=== PATIENT | female | born 1950 ===

== ENCOUNTER 2017-04-02 21:49 | Emergency (ER) | payer MEDICAID ==
[2017-04-02 21:49] VITALS: BMI 27.3
[2017-04-02 22:04] VITALS: BP 154/76; PULSE 99; RESP 18; TEMP 98.2; O2SAT 97
--- NOTE | 2017-04-02 23:20 | CT ---
EXAM: CT Lumbar Spine Without Intravenous Contrast CLINICAL HISTORY: 66 years old, female; Pain; Other: Midline pain; Additional info: Lumbar midline pain positional HX of arthritis TECHNIQUE: Axial computed tomography images of the lumbar spine without intravenous contrast. All CT scans at this facility use one or more dose reduction techniques, viz.: automated exposure control; ma/kV adjustment per patient size (including targeted exams where dose is matched to indication; i.e. head); or iterative reconstruction technique. COMPARISON: No relevant prior studies available. FINDINGS: Vertebrae: No acute fracture. Discs/spinal canal/neural foramina: No acute findings. Degenerative disease is identified at the level of L5/S1 with disc space narrowing, endplate changes and a vacuum phenomena. Facet arthropathy is also noted. Soft tissues: Unremarkable. IMPRESSION: Degenerative disease at the level of L5/S1, as detailed above.
--- NOTE | 2017-04-02 23:36 | ED PDOC ---
HPI: Back Time Seen by Provider: 04/02/17 22:06 Chief Complaint (Nursing): Back Pain Chief Complaint (Provider): Back Pain History Per: Patient History/Exam Limitations: no limitations Onset/Duration Of Symptoms: Days (x 2), Intermittent Episodes Additional Complaint(s): Jyothi is a 66 y/o female who presents to the ED c/o back pain that has been intermittent for the past two days. Patient states that the pain is worse when walking, bending over, or sitting up, and better when lying still. She denies radiation to the legs, numbness, weakness, fever, or urinary symptoms, and does not have problems ambulating. PMD: Cherrie Pillai Past Medical History Reviewed: Historical Data, Nursing Documentation, Vital Signs Vital Signs: Last Vital Signs Temp 98.2 F 04/02/17 22:01 Pulse 99 H 04/02/17 22:01 Resp 18 04/02/17 22:01 BP 154/76 H 04/02/17 22:01 Pulse Ox 97 04/02/17 22:01 - Medical History PMH: Anxiety, Colonic Polyps, Depression, Gastritis, HTN, Hypercholesterolemia, Osteoporosis Denies: Malignancy, Chronic Kidney Disease - Surgical History Surgical History: Endoscopy - Family History Family History: States: Unknown Family Hx - Social History Drugs: Denies - Immunization History Hx Tetanus Toxoid Vaccination: No Hx Influenza Vaccination: Yes Hx Pneumococcal Vaccination: No - Home Medications Home Medications: Ambulatory Orders Medication Instructions Recorded Amlodipine Besylate [Amlodipine] 5 mg PO DAILY 09/23/13 Atorvastatin Calcium [Lipitor] 10 mg PO DAILY 09/23/13 Raloxifene HCl [Evista] 60 mg PO DAILY 07/02/15 Ibuprofen [Motrin] 600 mg PO TID #20 tab 01/15/16 Methocarbamol [Robaxin] 500 mg PO BID #8 tab 01/15/16 Naproxen 500 mg PO BID #30 tab 04/02/17 - Allergies Allergies/Adverse Reactions: Allergies Allergy/AdvReac Type Severity Reaction Status Date / Time No Known Allergies Allergy Verified 01/15/16 14:06 Review of Systems ROS Statement: Except As Marked, All Systems Reviewed And Found Negative Constitutional: Negative for: Fever, Weakness Genitourinary Female: Negative for: Dysuria, Frequency, Incontinence, Hematuria Musculoskeletal: Positive for: Back Pain. Negative for: Leg Pain Physical Exam - Reviewed Nursing Documentation Reviewed: Yes Vital Signs Reviewed: Yes - Physical Exam Appears: Positive for: Well, Non-toxic, No Acute Distress Head Exam: Positive for: ATRAUMATIC, NORMAL INSPECTION, NORMOCEPHALIC Skin: Positive for: Normal Color, Warm, Dry ENT: Positive for: Normal ENT Inspection Neck: Positive for: Normal, Painless ROM, Supple Cardiovascular/Chest: Positive for: Regular Rate, Rhythm. Negative for: Murmur Respiratory: Positive for: Normal Breath Sounds. Negative for: Respiratory Distress Gastrointestinal/Abdominal: Positive for: Normal Exam, Bowel Sounds, Soft. Negative for: Tenderness Back: Positive for: Other (lower back midline and paraspinal tenderness. Negative straight leg) Extremity: Positive for: Normal ROM. Negative for: Pedal Edema, Deformity Neurologic/Psych: Positive for: Alert, Oriented. Negative for: Motor/Sensory Deficits - ECG O2 Sat by Pulse Oximetry: 97 (RA) Pulse Ox Interpretation: Normal Medical Decision Making Medical Decision Making: Time: 22:15 Initial Impression: Back Pain - Differentials: arthritis of spine, musculoskeletal pain, other conditions considered but not listed Initial Plan: --CT Lumbar Spine w/o Contrast --Urine Dipstick --Toradol --Flexeril Time: 23:30 FINDINGS: Vertebrae: No acute fracture. Discs/spinal canal/neural foramina: No acute findings. Degenerative disease is identified at the level of L5/S1 with disc space narrowing, endplate changes and a vacuum phenomena. Facet arthropathy is also noted. Soft tissues: Unremarkable. IMPRESSION: Degenerative disease at the level of L5/S1, as detailed above. Scribe Attestation: Documented by Joel Ty, acting as a scribe for Rafa Giraldo MD Provider Scribe Attestation: All medical record entries made by the Scribe were at my direction and personally dictated by me. I have reviewed the chart and agree that the record accurately reflects my personal performance of the history, physical exam, medical decision making, and the department course for this patient. I have also personally directed, reviewed, and agree with the discharge instructions and disposition. Disposition - Clinical Impression Clinical Impression: Back pain, Arthritis of lumbar spine - Patient ED Disposition Is Patient to be Admitted: No Doctor Will See Patient In The: Office Counseled Patient/Family Regarding: Studies Performed, Diagnosis, Need For Followup - Disposition Referrals: [facility] [Outside] Disposition: Routine/Home Disposition Time: 23:43 Condition: GOOD Additional Instructions: Take your medications as instructed. Follow up with your PCP in 2-3 days. Prescriptions: Naproxen 500 mg PO BID #30 tab Instructions: Back Pain (ED) Print Language: JAPANESE
== END 2017-04-02 23:47 | disposition home or self-care (01) ==
LOC: H.ER 21:49
DX: M54.9 Dorsalgia, unspecified (principal); M81.0 Age-related osteoporosis without current pathological fracture; E78.00 Pure hypercholesterolemia, unspecified; F32.9 Major depressive disorder, single episode, unspecified; F41.9 Anxiety disorder, unspecified; I10 Essential (primary) hypertension
CPT/HCPCS: 72131; 96372; 99282; J1885

== ENCOUNTER 2017-06-08 10:00 | Emergency (ER) | payer MEDICAID ==
[2017-06-08 10:01] VITALS: BMI 27.3
[2017-06-08 10:30] VITALS: RESP 17; TEMP 97; O2SAT 99
--- NOTE | 2017-06-08 12:44 | ED PDOC ---
HPI: Female Pain Time Seen by Provider: 06/08/17 12:11 Chief Complaint (Nursing): Female Genitourinary Chief Complaint (Provider): "my back hurts and i bled yesterday" History Per: Patient History/Exam Limitations: no limitations Onset/Duration Of Symptoms: Days Current Symptoms Are (Timing): Gone Now Severity: Mild Pain Scale Rating Of: 2 Quality Of Discomfort: Aching Associated Symptoms: Back Pain. denies: Fever, Nausea, Vomiting, Urinary Symptoms Additional Complaint(s): 66 y/o pre-diabetic female presents for evaluation of an episode of abnormal uterine bleeding and low back pain. Pt reports she had some back pain the last few months and reports it worsened yesterday w/o any inciting event. She denies any saddle anesthesia, urinary/bowel retention/incontinence. Pain is 3/10, achy , nonradiating. She also reports an episode of abnormal uterine bleeding, w/o any traumatic event. She reports bleeding was about the amount of what her periods used to be (2-3 pads per day), w/o clots, and spontaneously subsided. LMP was over 5 years ago. No hx of abnormal uterine bleeding. Denies bleeding currently. Denies any hx of coagulapathy or blood thinning medications. Reports having an endometrial bx years ago w/o any abnormal findings. No other active complaints. Denies fever/chills, lightheadedness/dizziness, CP/SOB/palpitations , N/V/D/C, urinary symptoms, numbness/tingling. Past Medical History Vital Signs: Last Vital Signs Temp 97 F L 06/08/17 10:27 Pulse 69 06/08/17 10:27 Resp 17 06/08/17 10:27 BP 149/84 06/08/17 10:27 Pulse Ox 99 06/08/17 10:27 - Medical History PMH: Anxiety, Colonic Polyps, Depression, Gastritis, HTN, Hypercholesterolemia, Osteoporosis Denies: Malignancy, Chronic Kidney Disease - Surgical History Surgical History: Endoscopy - Family History Family History: States: Unknown Family Hx - Immunization History Hx Tetanus Toxoid Vaccination: No Hx Influenza Vaccination: Yes Hx Pneumococcal Vaccination: No - Home Medications Home Medications: Ambulatory Orders Medication Instructions Recorded Amlodipine Besylate [Amlodipine] 5 mg PO DAILY 09/23/13 Atorvastatin Calcium [Lipitor] 10 mg PO DAILY 09/23/13 Raloxifene HCl [Evista] 60 mg PO DAILY 07/02/15 Ibuprofen [Motrin] 600 mg PO TID #20 tab 01/15/16 Methocarbamol [Robaxin] 500 mg PO BID #8 tab 01/15/16 Naproxen 500 mg PO BID #30 tab 04/02/17 - Allergies Allergies/Adverse Reactions: Allergies Allergy/AdvReac Type Severity Reaction Status Date / Time No Known Allergies Allergy Verified 06/08/17 10:27 - Laboratory Results Result Diagrams: 06/08/17 13:47 06/08/17 13:47 - ECG O2 Sat by Pulse Oximetry: 99 - Progress ED Course And Treament: CBC CMP UA Type and Screen labs within normal limits, pt asymptomatic. Declined pelvic examination today. Discussed importance of following up with doctor of naturopathic medicine and PMD for further work up. Pt vocalized understanding and plans to set up appointments this week. ED precautions provided. Disposition - Clinical Impression Clinical Impression: Post-menopausal bleeding - Patient ED Disposition Is Patient to be Admitted: No - Disposition Disposition: Routine/Home Disposition Time: 14:37 Condition: STABLE Additional Instructions: follow up with your PMD in 2-3 days follow up with your doctor of naturopathic medicine as soon as possible if bleeding resumes, please return to ED for evaluation Forms: [employer] (Pashto)
[2017-06-08 13:56] LABS: BASO # 0.1 K/uL (0.0-0.2); EOS % 0.5 % (0.0-4.0); HEMOGLOBIN 13.7 g/dL (12.0-16.0); LYMPH # 2.9 K/uL (1.0-4.3); MEAN CELL VOLUME 86.4 fl (81.0-99.0); MEAN CORPUSCULAR HEMOGLOBIN 28.7 pg (27.0-31.0); MEAN CORPUSCULAR HGB CONC 33.3 g/dL (33.0-37.0); MEAN PLATELET VOLUME 9.9 fl (7.2-11.7); MONO # 0.5 K/uL (0.0-0.8); MONO % 6.2 % (0.0-10.0); NEUT # 4.3 K/uL (1.8-7.0); NEUT % 55.3 % (50.0-75.0); NRBC % 0.2 % (0.0-0.0); RBC 4.78 Mil/uL (3.80-5.20); RED CELL DISTRIBUTION WIDTH 13.3 % (11.5-14.5); WHITE BLOOD COUNT 7.8 K/uL (4.8-10.8)
[2017-06-08 13:59] LABS: SQUAMOUS EPITHIAL < 1 /hpf (0-5); URINE BILIRUBIN NEGATIVE (NEGATIVE); URINE BLOOD NEGATIVE (NEGATIVE); URINE CLARITY SLIGHTY-CLOUDY (Clear); URINE COLOR YELLOW (YELLOW); URINE GLUCOSE (UA) NEG (Normal); URINE LEUKOCYTE ESTERASE NEG Leu/uL (Negative); URINE NITRATE NEGATIVE (NEGATIVE); URINE PROTEIN NEGATIVE (NEGATIVE); URINE UROBILINOGEN 0.2-1.0 mg/dL (0.2-1.0)
[2017-06-08 14:10] LABS: ALB/GLOB RATIO 1.4 (1.0-2.1); ALBUMIN 4.5 g/dL (3.5-5.0); ALT/SGPT 44 U/L (9-52); AST/SGOT 32 U/L (14-36); BLOOD UREA NITROGEN 14 mg/dl (7-17); CALCIUM 9.9 mg/dL (8.4-10.2); GFR AFRICAN-AMERICAN > 60; GFR NON-AFRICAN AMERICAN > 60
[2017-06-08 15:03] VITALS: BP 120/88; PULSE 76
== END 2017-06-08 15:02 | disposition home or self-care (01) ==
LOC: H.ER 10:00
DX: M54.9 Dorsalgia, unspecified (principal); N95.0 Postmenopausal bleeding; R73.09 Other abnormal glucose; E78.00 Pure hypercholesterolemia, unspecified; F32.9 Major depressive disorder, single episode, unspecified; F41.9 Anxiety disorder, unspecified; I10 Essential (primary) hypertension; M81.0 Age-related osteoporosis without current pathological fracture

== ENCOUNTER 2017-12-18 11:32 | Emergency (ER) | payer MEDICAID ==
[2017-12-18 11:36] VITALS: BMI 30.2
[2017-12-18 11:37] VITALS: BP 127/77; PULSE 83; RESP 16; TEMP 98.8; O2SAT 96
[2017-12-18] MEDS ORDERED: Iohexol 240 (50 ml) PO ONE (12:36)
[2017-12-18] MEDS ORDERED: Iohexol 240 (50 ml) ONE (12:51)
[2017-12-18 13:41] LABS: URINE BILIRUBIN NEGATIVE (NEGATIVE); URINE BLOOD NEGATIVE (NEGATIVE); URINE CLARITY CLEAR (Clear); URINE COLOR YELLOW (YELLOW); URINE GLUCOSE (UA) NEG (Normal); URINE LEUKOCYTE ESTERASE SMALL Leu/uL (Negative); URINE PROTEIN NEGATIVE (NEGATIVE); URINE UROBILINOGEN 0.2-1.0 mg/dL (0.2-1.0)
[2017-12-18 13:46] LABS: HEMOGLOBIN 13.2 g/dL (12.0-16.0); MONO # 0.5 K/uL (0.0-0.8); NEUT # 3.4 K/uL (1.8-7.0)
[2017-12-18 13:49] LABS: BASO % 0.7 % (0.0-2.0); EOS % 0.7 % (0.0-4.0); LYMPH # 2.8 K/uL (1.0-4.3); LYMPH % 41.6 % (20.0-40.0); MEAN CELL VOLUME 87.4 fl (81.0-99.0); MEAN CORPUSCULAR HGB CONC 33.2 g/dL (33.0-37.0); MONO % 7.3 % (0.0-10.0); NEUT % 49.7 % (50.0-75.0); NRBC % 0.1 % (0.0-0.0); RBC 4.57 Mil/uL (3.80-5.20); RED CELL DISTRIBUTION WIDTH 13.5 % (11.5-14.5); WHITE BLOOD COUNT 6.8 K/uL (4.8-10.8)
[2017-12-18 14:33] LABS: ALBUMIN 4.5 g/dL (3.5-5.0); BLOOD UREA NITROGEN 19 mg/dl (7-17); CALCIUM 9.9 mg/dL (8.4-10.2); GFR AFRICAN-AMERICAN > 60; GFR NON-AFRICAN AMERICAN > 60
[2017-12-18 14:34] LABS: ALB/GLOB RATIO 1.5 (1.0-2.1); ALT/SGPT 32 U/L (9-52); AST/SGOT 27 U/L (14-36); LIPASE 63 U/L (23-300)
--- NOTE | 2017-12-18 14:45 | ED PDOC ---
HPI: Abdomen Time Seen by Provider: 12/18/17 11:40 Chief Complaint (Nursing): Abdominal Pain Chief Complaint (Provider): abdominal pain History Per: Patient, Head Of Advertising History/Exam Limitations: no limitations Current Symptoms Are (Timing): Still Present Location Of Pain/Discomfort: RLQ, Periumbilical, Suprapubic Quality Of Discomfort: Sharp Associated Symptoms: Urinary Symptoms (frequency). denies: Nausea, Vomiting, Diarrhea, Loss Of Appetite Additional Complaint(s): 66yo female c/o lower abdominal pain ongoing intermittently for about 2 months. Denies vomiting, diarrhea, constipation, fever or dizziness. Does note urinary frequency but denies dysuria or hematuria. Denies vaginal complaints. Told PMD at [facility] about symptoms and had bloodwork performed but unknown results. Today pain was worse prompting ED visit. Past Medical History Reviewed: Historical Data, Nursing Documentation, Vital Signs Vital Signs: Last Vital Signs Temp 98.8 F 12/18/17 11:36 Pulse 83 12/18/17 11:36 Resp 16 12/18/17 11:36 BP 127/77 12/18/17 11:36 Pulse Ox 96 12/18/17 11:36 - Medical History PMH: Anxiety, Colonic Polyps, Depression, Gastritis, HTN, Hypercholesterolemia, Osteoporosis Denies: Malignancy, Chronic Kidney Disease - Surgical History Surgical History: Endoscopy, - Family History Family History: States: Unknown Family Hx - Living Arrangements Living Arrangements: With Family - Social History Current smoker - smoking cessation education provided: No Alcohol: None - Immunization History Hx Tetanus Toxoid Vaccination: No Hx Influenza Vaccination: Yes Hx Pneumococcal Vaccination: No - Home Medications Home Medications: Ambulatory Orders Medication Instructions Recorded Amlodipine Besylate [Amlodipine] 5 mg PO DAILY 09/23/13 Atorvastatin Calcium [Lipitor] 10 mg PO DAILY 09/23/13 Raloxifene HCl [Evista] 60 mg PO DAILY 07/02/15 Ibuprofen [Motrin] 600 mg PO TID #20 tab 01/15/16 Methocarbamol [Robaxin] 500 mg PO BID #8 tab 01/15/16 Naproxen 500 mg PO BID #30 tab 04/02/17 - Allergies Allergies/Adverse Reactions: Allergies Allergy/AdvReac Type Severity Reaction Status Date / Time No Known Allergies Allergy Verified 06/08/17 10:27 Review of Systems Constitutional: Negative for: Fever ENT: Negative for: Ear Pain Cardiovascular: Negative for: Chest Pain Respiratory: Negative for: Shortness of Breath Gastrointestinal: Positive for: Abdominal Pain. Negative for: Vomiting, Diarrhea Genitourinary Female: Positive for: Frequency. Negative for: Dysuria, Incontinence, Hematuria Musculoskeletal: Negative for: Neck Pain Skin: Negative for: Rash, Lesions Neurological: Negative for: Weakness, Numbness Physical Exam - Reviewed Nursing Documentation Reviewed: Yes Vital Signs Reviewed: Yes - Physical Exam Appears: Positive for: Well, Non-toxic, No Acute Distress Head Exam: Positive for: ATRAUMATIC, NORMAL INSPECTION, NORMOCEPHALIC Skin: Positive for: Normal Color, Warm. Negative for: Rash (neg rash to abdomen ) Eye Exam: Positive for: EOMI, Normal appearance, PERRL ENT: Positive for: Normal ENT Inspection Neck: Positive for: Normal, Painless ROM Cardiovascular/Chest: Positive for: Regular Rate, Rhythm Respiratory: Positive for: CNT, Normal Breath Sounds Gastrointestinal/Abdominal: Positive for: Soft, Tenderness (mild RLQ tenderness) . Negative for: Guarding, Rebound Back: Positive for: Normal Inspection Extremity: Positive for: Normal ROM. Negative for: Tenderness Neurologic/Psych: Positive for: Alert, Oriented. Negative for: Motor/Sensory Deficits - Laboratory Results Result Diagrams: 12/18/17 12:46 12/18/17 12:46 - ECG O2 Sat by Pulse Oximetry: 96 Medical Decision Making Medical Decision Making: workup for ongoing intermittent abd pain initiated labs and CT abd pelvis initiated --------- labs reviewed and clinically unremarkable Disposition - Clinical Impression Clinical Impression: Abdominal pain - Patient ED Disposition Is Patient to be Admitted: No Counseled Patient/Family Regarding: Studies Performed, Diagnosis, Need For Followup - Disposition Disposition: Transfer of Care Disposition Time: 14:49 Condition: STABLE Patient Signed Over To: Shruthi Ferrell Handoff Comments: pending CT /re-eval and dispo/dx
[2017-12-18] MEDS ORDERED: Iohexol 300 100 ML IJ ONE (14:50)
[2017-12-18] MEDS ORDERED: Sodium Chloride 0.9% 50 ML IV ONE (14:50)
--- NOTE | 2017-12-18 15:14 | ED PDOC ---
- Laboratory Results Result Diagrams: 12/18/17 12:46 12/18/17 12:46 - ECG O2 Sat by Pulse Oximetry: 96 Medical Decision Making Medical Decision Makin:00 -Received patient endorsement by Dr. Bains. Patient with lower abdominal pain pending CT scan, reassessment and final ER disposition. -Lab demonstrate no clinically significant abnormalities Accession No. : [id number] Patient Name / ID : EILEEN MCNEAL / [id number] Exam Date : 12/18/2017 14:57:48 ( Approved ) Study Comment : Sex / Age : F / 66Y Creator : Juancho Medina MD Dictator : Juancho Medina MD Stitching Machine Operator : [employer] Consultant : Juancho Medina MD Approver2 : Report Date : 12/18/2017 15:42:56 My Comment : Date of service: 12/18/2017 PROCEDURE: CT Abdomen and Pelvis with contrast HISTORY: R lower abd pain x2 months COMPARISON: None. TECHNIQUE: Contrast dose: Omnipaque 300, 95 cc Radiation dose: Total exam DLP = 621.82 mGy-cm. This CT exam was performed using one or more of the following dose reduction techniques: Automated exposure control, adjustment of the mA and/or kV according to patient size, and/or use of iterative reconstruction technique. FINDINGS: LOWER THORAX: Unremarkable. LIVER: Diminished attenuation suggests hepatic steatosis. No hepatic mass or intrahepatic biliary dilatation identified. GALLBLADDER AND BILE DUCTS: Gallbladder appears mildly distended and is otherwise unremarkable appearing. PANCREAS: Unremarkable. No gross lesion or ductal dilatation. SPLEEN: Unremarkable. ADRENALS: Unremarkable. No mass. KIDNEYS AND URETERS: No obstructive uropathy or solid parenchymal mass identified bilaterally. Small cortical defects is seen at the right kidney suggestive of small infarct. VASCULATURE: Unremarkable. No aortic aneurysm. BOWEL: Unremarkable. No obstruction. No gross mural thickening. APPENDIX: Normal appendix. PERITONEUM: Small umbilical hernia is identified containing only fat. No ascites or mesenteric edema. No free intra peritoneal gas identified. LYMPH NODES: Unremarkable. No enlarged lymph nodes. BLADDER: A distended but thin walled urinary bladder is identified. REPRODUCTIVE: Unremarkable. BONES: No acute fracture. OTHER FINDINGS: None. IMPRESSION: 1. No definite acute abdominal or pelvic findings including the appendix. 2. Mild hepatic steatosis suggested diffusely. 3. Distended but otherwise unremarkable appearing gallbladder. On reevaluation pt stable. DW pt findings and plan of care. Bentyl prn. PMD and possible GI follow up. All questions/concerns answered/addressed. Disposition - Clinical Impression Clinical Impression: Abdominal pain - POA Present On Arrival: None - Disposition Referrals: Juan J Garcia [Staff Provider] - (CALL IMMEDIATELY TO ARRANGE FOLLOW UP APPOINTMENT IN 1-2 WEEKS. YOU MAY NEED TO SEE YOUR PCP FIRST TO OBTAIN A REFERRAL.) Disposition: Routine/Home Disposition Time: 15:30 Condition: STABLE Prescriptions: Dicyclomine [Bentyl] 20 mg PO QID PRN #20 tab PRN Reason: abdominal pain Saccharomyces Boulardi [Florastor] 500 mg PO BID #28 cap Instructions: Stomach Ache and Stomach Upset Print Language: HEBREW
--- NOTE | 2017-12-18 15:44 | CT ---
Date of service: 12/18/2017 PROCEDURE: CT Abdomen and Pelvis with contrast HISTORY: R lower abd pain x2 months COMPARISON: None. TECHNIQUE: Contrast dose: Omnipaque 300, 95 cc Radiation dose: Total exam DLP = 621.82 mGy-cm. This CT exam was performed using one or more of the following dose reduction techniques: Automated exposure control, adjustment of the mA and/or kV according to patient size, and/or use of iterative reconstruction technique. FINDINGS: LOWER THORAX: Unremarkable. LIVER: Diminished attenuation suggests hepatic steatosis. No hepatic mass or intrahepatic biliary dilatation identified. GALLBLADDER AND BILE DUCTS: Gallbladder appears mildly distended and is otherwise unremarkable appearing. PANCREAS: Unremarkable. No gross lesion or ductal dilatation. SPLEEN: Unremarkable. ADRENALS: Unremarkable. No mass. KIDNEYS AND URETERS: No obstructive uropathy or solid parenchymal mass identified bilaterally. Small cortical defects is seen at the right kidney suggestive of small infarct. VASCULATURE: Unremarkable. No aortic aneurysm. BOWEL: Unremarkable. No obstruction. No gross mural thickening. APPENDIX: Normal appendix. PERITONEUM: Small umbilical hernia is identified containing only fat. No ascites or mesenteric edema. No free intra peritoneal gas identified. LYMPH NODES: Unremarkable. No enlarged lymph nodes. BLADDER: A distended but thin walled urinary bladder is identified. REPRODUCTIVE: Unremarkable. BONES: No acute fracture. OTHER FINDINGS: None. IMPRESSION: 1. No definite acute abdominal or pelvic findings including the appendix. 2. Mild hepatic steatosis suggested diffusely. 3. Distended but otherwise unremarkable appearing gallbladder.
--- NOTE | 2017-12-18 17:02 | CARD ---
APPROVED REPORT Date of service: 12/18/2017 <Conclusion> Normal sinus rhythm Normal ECG
== END 2017-12-18 16:04 | disposition home or self-care (01) ==
LOC: H.ER 11:32
DX: R10.31 Right lower quadrant pain (principal); E78.00 Pure hypercholesterolemia, unspecified; I10 Essential (primary) hypertension
CPT/HCPCS: 74177; 80053; 81003; 83690; 85025; 93005; 99283; Q9966; Q9967

== ENCOUNTER 2018-02-17 09:31 | Emergency (ER) | payer MEDICAID ==
[2018-02-17 09:38] VITALS: TEMP 97
[2018-02-17 09:39] VITALS: BMI 27.2
[2018-02-17 09:55] VITALS: RESP 20; O2SAT 97
--- NOTE | 2018-02-17 11:15 | ED PDOC ---
Syncope/Near Syncope/Dizziness Time Seen by Provider: 02/17/18 10:41 Chief Complaint (Nursing): Dizziness/Lightheaded Chief Complaint (Provider): Dizziness/Lightheaded History Per: Patient, Family (grand daughter), Historic Interpreter (Marleny, patient's grand daughter) History/Exam Limitations: no limitations Additional Complaint(s): Patient is a 67 y/o female with history of hypertension and hypercholesterolemia, who presents to the ED complaining of blurry vision with associated dizziness and nausea. Patient reports that the dizziness and vision change episodes are intermittent and occur for 30 minute intervals. She also states that she feels like the room is spinning and she feels a little unbalanced and feels like she is about to faint. Patient also reports current photosensitivity and still has some blurry vision on arrival. She denies chest pain, shortness of breath, fever, and vomiting. Additionally, patient is concerned about some bruising on her arms. Patient's grand daughter, Marleny, who is at her bedside has been authorized by patient to function as a sales engagement executive. PMD: Dr. Cherrie Blum. At [facility] Past Medical History Reviewed: Historical Data, Nursing Documentation, Vital Signs Vital Signs: Last Vital Signs Temp 97 F L 02/17/18 09:51 Pulse 64 02/17/18 09:51 Resp 20 02/17/18 09:51 BP 145/93 H 02/17/18 09:51 Pulse Ox 97 02/17/18 09:51 - Medical History PMH: Anxiety, Colonic Polyps, Depression, Gastritis, HTN, Hypercholesterolemia, Osteoporosis Denies: Malignancy, Chronic Kidney Disease - Surgical History Surgical History: Endoscopy, - Family History Family History: States: Unknown Family Hx - Immunization History Hx Tetanus Toxoid Vaccination: No Hx Influenza Vaccination: Yes Hx Pneumococcal Vaccination: No - Home Medications Home Medications: Ambulatory Orders Medication Instructions Recorded Amlodipine Besylate [Amlodipine] 5 mg PO DAILY 09/23/13 Atorvastatin Calcium [Lipitor] 10 mg PO DAILY 09/23/13 Raloxifene HCl [Evista] 60 mg PO DAILY 07/02/15 Ibuprofen [Motrin] 600 mg PO TID #20 tab 01/15/16 Methocarbamol [Robaxin] 500 mg PO BID #8 tab 01/15/16 Naproxen 500 mg PO BID #30 tab 11/16/17 Dicyclomine [Bentyl] 20 mg PO QID PRN #20 tab 12/18/17 Saccharomyces Boulardi [Florastor] 500 mg PO BID #28 cap 12/18/17 Meclizine [Meclizine*] 25 mg PO Q6 PRN #6 tab 02/17/18 - Allergies Allergies/Adverse Reactions: Allergies Allergy/AdvReac Type Severity Reaction Status Date / Time No Known Allergies Allergy Verified 06/08/17 10:27 Review of Systems ROS Statement: Except As Marked, All Systems Reviewed And Found Negative Constitutional: Negative for: Fever Eyes: Positive for: Vision Change (blurry vision) Cardiovascular: Negative for: Chest Pain Respiratory: Negative for: Shortness of Breath Gastrointestinal: Positive for: Nausea. Negative for: Vomiting Skin: Positive for: Bruising Neurological: Negative for: Dizziness Physical Exam - Reviewed Nursing Documentation Reviewed: Yes Vital Signs Reviewed: Yes - Physical Exam Appears: Positive for: Well, Non-toxic, No Acute Distress Head Exam: Positive for: ATRAUMATIC, NORMAL INSPECTION, NORMOCEPHALIC Skin: Positive for: Normal Color, Warm, DRY Eye Exam: Positive for: EOMI, Normal appearance, PERRL Neck: Positive for: Normal, Painless ROM Cardiovascular/Chest: Positive for: Regular Rate, Rhythm. Negative for: Murmur Respiratory: Positive for: Normal Breath Sounds. Negative for: Respiratory Distress Gastrointestinal/Abdominal: Positive for: Normal Exam, Soft. Negative for: Tenderness Back: Positive for: Normal Inspection. Negative for: L CVA Tenderness, R CVA Tenderness Extremity: Positive for: Normal ROM. Negative for: Pedal Edema, Deformity Neurologic/Psych: Positive for: Alert, auto brake technician II-XII (intact), Oriented, Mood/Affect (flat), Cerebellar Tests (intact), Gait (steady). Negative for: Motor/Sensory Deficits, Aphasia, Facial Droop - Laboratory Results Result Diagrams: 02/17/18 11:02 02/17/18 11:02 - ECG O2 Sat by Pulse Oximetry: 97 (RA) Pulse Ox Interpretation: Normal Medical Decision Making Medical Decision Making: Time: 10:50 Initial Impression: Dizziness, r/o cardiac etiology, vertigo, cranial abnormality Initial Plan: --CT head --CMP --Troponin --CBC w/ diff --Antivert 25 mg Time: 11:28 FINDINGS: HEMORRHAGE: No intracranial hemorrhage. BRAIN: No mass effect or edema. There is mild generalized cerebral atrophy and mild prominence of the frontal extra axial spaces and cerebral sulci. No particularly prominent microvascular ischemic changes are noted.. VENTRICLES: Unremarkable. No hydrocephalus. CALVARIUM: Unremarkable. PARANASAL SINUSES: Unremarkable as visualized. No significant inflammatory changes. MASTOID AIR CELLS: Unremarkable as visualized. No inflammatory changes. OTHER FINDINGS: None. IMPRESSION: Mild generalized cerebral atrophy. Otherwise unremarkable exam No hemorrhage or mass effect. 13:55 Patient was reevaluated and does not have any blurred vision and will most likely be discharged. Told to follow up with Dr. Blum. Scribe Attestation: Documented by Marcos Jones acting as a scribe for Jonny Mo MD Provider Scribe Attestation: All medical record entries made by the Scribe were at my direction and personally dictated by me. I have reviewed the chart and agree that the record accurately reflects my personal performance of the history, physical exam, medical decision making, and the department course for this patient. I have also personally directed, reviewed, and agree with the discharge instructions and disposition. Disposition - Clinical Impression Clinical Impression: Dizziness - Disposition Condition: IMPROVED Additional Instructions: follow up with Dr Blum in 1-2 days for reevaluation- possible referral to neurologist return to the ED with any worsening or concerning symptoms Prescriptions: Meclizine [Meclizine*] 25 mg PO Q6 PRN #6 tab PRN Reason: Dizziness Instructions: Vertigo (a Type of Dizziness) Forms: Peter Blueberry (Macedonian) Print Language: YI
[2018-02-17 11:20] LABS: BASO % 0.8 % (0.0-2.0); EOS % 0.5 % (0.0-4.0); HEMOGLOBIN 14.2 g/dL (12.0-16.0); LYMPH # 1.9 K/uL (1.0-4.3); LYMPH % 32.6 % (20.0-40.0); MEAN CELL VOLUME 87.4 fl (81.0-99.0); MEAN CORPUSCULAR HEMOGLOBIN 29.9 pg (27.0-31.0); MEAN CORPUSCULAR HGB CONC 34.2 g/dL (33.0-37.0); MEAN PLATELET VOLUME 9.5 fl (7.2-11.7); MONO # 0.4 K/uL (0.0-0.8); MONO % 6.4 % (0.0-10.0); NEUT # 3.5 K/uL (1.8-7.0); NEUT % 59.7 % (50.0-75.0); NRBC % 0.2 % (0.0-0.0); RBC 4.74 Mil/uL (3.80-5.20); RED CELL DISTRIBUTION WIDTH 13.7 % (11.5-14.5); WHITE BLOOD COUNT 5.9 K/uL (4.8-10.8)
--- NOTE | 2018-02-17 11:30 | CT ---
Date of service: 02/17/2018 PROCEDURE: CT HEAD WITHOUT CONTRAST. HISTORY: headache COMPARISON: None available. TECHNIQUE: Axial computed tomography images were obtained through the head/brain without intravenous contrast. Radiation dose: Total exam DLP = 670 mGy-cm. This CT exam was performed using one or more of the following dose reduction techniques: Automated exposure control, adjustment of the mA and/or kV according to patient size, and/or use of iterative reconstruction technique. FINDINGS: HEMORRHAGE: No intracranial hemorrhage. BRAIN: No mass effect or edema. There is mild generalized cerebral atrophy and mild prominence of the frontal extra axial spaces and cerebral sulci. No particularly prominent microvascular ischemic changes are noted.. VENTRICLES: Unremarkable. No hydrocephalus. CALVARIUM: Unremarkable. PARANASAL SINUSES: Unremarkable as visualized. No significant inflammatory changes. MASTOID AIR CELLS: Unremarkable as visualized. No inflammatory changes. OTHER FINDINGS: None. IMPRESSION: Mild generalized cerebral atrophy. Otherwise unremarkable exam No hemorrhage or mass effect.
[2018-02-17 11:38] LABS: ALB/GLOB RATIO 1.3 (1.0-2.1); ALBUMIN 4.3 g/dL (3.5-5.0); ALT/SGPT 31 U/L (9-52); AST/SGOT 26 U/L (14-36); BLOOD UREA NITROGEN 15 mg/dl (7-17); GFR NON-AFRICAN AMERICAN > 60
[2018-02-17 13:32] VITALS: BP 134/86; PULSE 75
== END 2018-02-17 14:00 | disposition home or self-care (01) ==
LOC: H.ER 09:31
DX: R42 Dizziness and giddiness (principal); E78.00 Pure hypercholesterolemia, unspecified; I10 Essential (primary) hypertension